=== PATIENT | male | born 1955 | race Caucasian/White ===

== ENCOUNTER 2016-08-07 03:22 | Emergency (ER) | payer OTHER ==
--- NOTE | 2016-08-07 03:53 | ERNOTE ---
Abdominal HPI - Narrative Date of Service: 08/07/16 - General Chief Complaint: Abdominal Pain Time Seen by Provider: 08/07/16 03:51 Source: patient, family - AND DAUGHTER. - Immun/Allergies/Home Medications Immunizatons: IMMUNIZATION HX Immunizations Up to Date No: Unk History of Influenza Vaccine Yes Hx Pneumococcal Vaccination No Allergies/Adverse Reactions: Allergies No Known Allergies Allergy (Unverified 08/07/16 03:25) Home Medications: HOME MEDICATIONS Cyanocobalamin (Vitamin B-12) [Vitamin B-12] 2,500 mcg SL DAILY 08/07/16 [Last Taken Unknown] Felodipine [Plendil] 5 mg PO DAILY 08/07/16 [Last Taken Unknown] Hydrocortisone Acetate [Anusol Hc Suppository] 25 mg RC BID #28 supp.rect [Last Taken Unknown] Lisinopril/Hydrochlorothiazide [Lisinopril-Hctz 20-25 mg Tab] 1 each PO DAILY [Last Taken Unknown] Metoprolol Succinate [Toprol Xl] 200 mg PO DAILY 08/07/16 [Last Taken Unknown] Tramadol HCl [Rybix Odt] 50 mg PO Q6H PRN #20 tab.rapdis 08/07/16 [Last Taken Unknown] Ubidecarenone [Co Q-10] 100 mg PO DAILY 08/07/16 [Last Taken Unknown] - History of Present Illness Narrative: PT C/O 3 MONTHS OF ABD PAIN THAT HE SAYS IS WORSE TONIGHT. HE IS NOT AWARE OF ANY FEVER. HE DENIES VOMITING . HE STATES HE HAS HAD DIARRHEA 10 15 X DAY FOR MONTHS WITH BRB. DENIES MEDS OTHER THAN MOM THAT HE TRIED TONIGHT WITH NO HELP. HE HAS BEEN TRYING TO LOSE WEIGHT AND HAS LOST 15 LBS SINCE "BEGINNING OF SUMMER" ( WHICH HE SAYS IS MAY). HE LIVES WITH [place]. NO ONE ELSE AT HOME IS SICK. HE SAYS HIS PAIN IS A GENERALIZED MID ABDOMINAL ACHING. NO NEW MEDS. HE SAW HIS PCP ABOUT 3-4 WEEKS AGO AND THEY DECIDED HE SHOULD STOP TAKING FISH OIL BUT THAT DID NOT HELP. HIS SUGGESTED HE GET A COLONOSCOPY AND HE REPORTS THAT IN THE PAST HE WAS TOLD HE HAD INTERNAL HEMORRHOIDS AND HE WONDERS IF THAT IS THE CAUSE OF HIS BLOOD IN HIS STOOLS. HE WAS SUPPOSED TO F/U WITH BLOOD WORK FOR HIS PCP BUT HE NEVER DID. Timing: constant, getting worse Review of Systems - Review of Systems Constitutional: Present: See HPI EYE: Present: no symptoms reported ENT: Present: no symptoms reported Respiratory: Present: no symptoms reported Cardiology: Present: no symptoms reported Gastrointestinal/Abdominal: Present: See HPI, diarrhea, abdominal pain, eating less Genitourinary: Present: no symptoms reported Musculoskeletal: Present: no symptoms reported Skin: Present: no symptoms reported Neurological: Present: no symptoms reported Endocrine: Present: no symptoms reported Hematologic/Lymphatic: Present: no symptoms reported Psych: Present: no symptoms reported All Other Systems: All systems neg except as marked - Patient's Past Medical History Patient History - Medical: No pertinent hx Patient History - Cardiac/Respiratory: Hypertension Patient History - Cancer: No Hx of Cancer Patient History - Surgical Procedures: Cataracts, Other, Orthopedic - LEFT KNEE SCOPE Patient History - Other: None - Social History Living Situations: home Psych History: No pertinent hx Smoking Status: Never smoker Have you smoked in the past 12 months: No Do you dip or chew tobacco: No Alcohol Use: heavy Drug Use: none - Immunizations Immunizations Up to Date: No - Unk Hx Pneumococcal Vaccination: No History of Influenza Vaccine: Yes Physical Exam - Physical Exam General Appearance: Present: wd/wn, alert, no apparent distress - VERY FLAT AFFECT, OVERLY TANNED, NO JAUNDICE, TEMP 38.5 NAD. Eye Exam: Normal inspection: bilateral Neck: Present: normal inspection Respiratory: Present: no respiratory distress, normal breath sounds, no accessory muscle use, chest nontender, lungs clear Cardiovascular/Chest: Present: regular rate, rhythm, no murmur, normal peripheral pulses Gastrointestinal/Abdominal: Present: tenderness - MILD UPPER ABD , POORLY LOCALIZED , TENDERNESS. ? ENLARGED LIVER LOBE IN EPIGASTRIC AREA. , abnormal bowel sounds - SL HYPERACTIVE B.S. , . Absent: guarding, rebound Rectal Exam: Present: nontender, normal rectal tone, normal prostate, black stool, blood-streaked stool - MINIMAL STOOL IN RECTUM = SOFT BROWN WITH SLIGHT RED STREAKING. NO MASSES PALPABLE. NO OBVIOUS ACTIVE EXTERNAL HEMORRHOIDS. HEME PENDING . Absent: mass Back Exam: Present: normal inspection, no CVA tenderness Neurological Exam: Present: alert, oriented. Absent: normal mood/affect - FLAT AFFECT. Skin Exam: Present: other - PT WITH EXCESSFULLY ORANGE LIKE TANNED SKIN. ED Progress - Results and Orders Patient's Lab Results:: I have reviewed the patient's lab results. Results and Orders: CBC = NL, CMP = MILD GLUC ELEVATION AND MINIMAL ELEVATION OF AST AND ALT. WITH NL BILI. CRP = 1.8 OR SL ELEVATED. URINE = NL WITH NEG ETOH. HEME STOOL = +. - Vital Signs Patient's Vital Signs:: I have reviewed the patient's vital signs. Vital Signs: Vital Signs 08/07/16 03:28 Temperature 38.5 C H Pulse Rate 99 Respiratory 18 Rate Blood Pressure 182/93 O2 Sat by Pulse 97 Oximetry - X-Ray X-Ray #1 X-Ray: abdomen Interpretation: Interp. by me - UNREMARKABLE. - CT/Ultrasound CT/Ultrasound Narrative: FOCAL BOWEL WALL THICKENING IN SIGMOID COLON - Progress/Reassessment Chief Complaint: Abdominal Pain Plan - Plan Plan: D/W DR PETER WITH WILL SEE HIM IN THE OFFICE TO ARRANGE FURTHER STUDY. Departure - Departure Clinical Impression: Chronic generalized abdominal pain Disposition: Home Follow Up Needed Condition: Good Instructions: Abdominal Pain, Adult, [id number], Bloody Diarrhea, Hemorrhoids , [id number] Additional Instructions: YOUR STUDIES WERE NEGATIVE EXCEPT THICKENING OF THE SIGMOID COLON AND FOR SOME BLOOD IN YOUR STOOL WHICH MAY BE FROM INTERNAL HEMORRHOIDS. CALL THE SURGEONS OFFIC E TO GET IN FOR FURTHER EVALUATION. Referrals: Kingston Peter MD [Associate] - Prescriptions: Hydrocortisone Acetate [Anusol Hc Suppository] 25 mg RC BID #28 supp.rect Tramadol HCl [Rybix Odt] 50 mg PO Q6H PRN #20 tab.rapdis PRN Reason: Pain
[2016-08-07 03:56] LABS: Mean Corpuscular Hemoglobin 30.1 pg (27-31); Mean Platelet Volume 9.8 fl (6.0-9.5); Neutrophil # 4.1 K/mm3 (1.3-6.0); Neutrophil % 67.1 % (42-75.0); Platelet Count 232 K/mm3 (150-450); Red Blood Count 4.65 M/mm3 (4.7-6.0); White Blood Count 6.1 K/mm3 (4.0-10.5)
[2016-08-07 04:09] LABS: Albumin * 3.7 gm/dl (3.4-5.0); Anion Gap 14.6 mmol/L (6.8-13.8); BUN/Creatinine Ratio 9.7 (9.0-21.6); CRP 1.8 mg/dL (0.0-0.9); Ca. Corrected For Albumin 8.6 mg/dL (8.4-10.2); Calcium * 8.7 mg/dL (7.9-10.9); Carbon Dioxide 24.9 mmol/L (24-32.6); Potassium 3.5 mmol/L (3.4-4.6); Total Protein 7.9 gm/dL (6.2-8.2)
[2016-08-07 04:20] LABS: Urine Bilirubin Negative (NEGATIVE); Urine Ketone 50 mg/dL (NEGATIVE); Urine Nitrite Negative (NEGATIVE); Urine Protein Negative (NEGATIVE); Urine Urobilinogen Normal (NORMAL); Urine pH 7.5 pH (5.0-7.0)
[2016-08-07 04:36] LABS: Urine Appearance Cloudy; Urine Bacteria TRACE; Urine Blood 5 /ul (NEGATIVE); Urine Color Yellow; Urine RBC None Seen /hpf (0-5); Urine WBC None Seen /hpf (0-5)
[2016-08-07 04:37] LABS: Urine Amorphous Sediment Many - 3+ (NONE-FEW)
[2016-08-07] MEDS ORDERED: KETOROLAC TROMETHAMINE 30 MG/ML VIAL IV ONE (05:09)
[2016-08-07] MEDS ORDERED: DIATRIZOATE MEGLU/DIATRIZO SOD 30 ML BTL ONE (05:11)
[2016-08-07] MEDS ORDERED: KETOROLAC TROMETHAMINE 30 MG/ML VIAL ONE (05:11)
[2016-08-07] MEDS ORDERED: DIATRIZOATE MEGLU/DIATRIZO SOD 30 ML BTL PO ONE (05:16)
--- OUTSIDE RECORDS SUMMARY | 2016-08-07 05:17 | XMS REPORT | Continuity of Care Document ---
:1955 Author Organization [facility] ([facility]) Address [address] [place] [address] Phone [phone] Care Team Providers Name Role Phone Laura Suazo Primary Care Provider [phone] Source Comments This disclosure is being made pursuant to the Care Everywhere program, applicable federal and state laws, and may not contain all informaitonavailable regarding this patient.[facility] ([facility]) Active Allergies and Adverse Reactions No Known Allergies Current Medications Prescription Sig. Disp. Refills Start Date End Date Status metoPROLol succinate 200 Take 200 mg by Active mg XL tablet mouth daily. felodipine 5 mg XR tablet Take 5 mg by mouth Active daily. lisinopril-hydrochlorothi Take 1 tablet by Active azide 20-25 mg per tablet mouth daily. multivitamin Take 1 capsule by Active (fat-soluble) (aquADEKs mouth 2 times SOFTGEL) capsule daily. Active Problems Problem Noted Date Status post cataract extraction and insertion of intraocular lens of right eye Status post cataract extraction and insertion of intraocular lens of left eye Resolved Problems Problem Noted Date Resolved Date Combined forms of age-related cataract of both eyes 05/02/2016 06/05/2016 Combined forms of age-related cataract of left eye 05/02/2016 05/21/2016 Combined forms of age-related cataract of right eye 05/02/2016 06/18/2016 Most Recent Encounters Date Type Specialty Providers Description 07/10/2016 Office Visit [facility] Ophthalmology Chief Comp: Patient Reported Reason For Visit 07/03/2016 Office Visit [facility] Ophthalmology [place], Dx: Status post MD Barrett cataract extraction and insertion of intraocular lens of left eye (Primary Dx) 06/25/2016 Office Visit [facility] Ophthalmology [place], Comp: Patient MD Barrett Reported Reason For Visit 06/18/2016 Office Visit [facility] Ophthalmology [place], Dx: Combined forms MD Barrett of age-related cataract of right eye (Primary Dx) 06/18/2016 Hospital Encounter [facility] General Internal [place], Dx: Combined forms Antonia Hyde MD of age-related cataract of right eye (Primary Dx) 06/18/2016 Anesthesia Event [facility] General Internal Jia Walden M, CUT TO LENGTH OPERATOR 06/18/2016 Surgery [facility] General Internal [place], RIGHT CATARACT Antonia Hyde MD EXTRACTION WITH INTRAOCULAR LENS IMPLANTATION 06/06/2016 Office Visit [facility] Ophthalmology [place], Chief Comp: Patient MD Barrett Reported Reason For Visit 06/05/2016 Office Visit [facility] Ophthalmology [place], Dx: Combined forms MD Barrett of age-related cataract of right eye (Primary Dx) 05/21/2016 Office Visit [facility] Ophthalmology [place] Dx: Combined forms MD Barrett of age-related cataract of left eye (Primary Dx) 05/21/2016 Hospital Encounter [facility] Internal [place] Dx: Combined forms Antonia Hyde MD of age-related cataract of left eye (Primary Dx) 05/21/2016 Anesthesia Event [facility] Internal Kenya Ramos Medicine CUT TO LENGTH OPERATOR 05/21/2016 Surgery [facility] [place], LEFT CATARACT Antonia Hyde MD EXTRACTION WITH INTRA OCCULAR LENS IMPLANTATION Social History Tobacco Use Types Packs/Day Years Used Date Former Smoker Smokeless Tobacco: Former User Alcohol Use Drinks/Week oz/Week Comments Yes 5 Cans of beer 3.0 Last Filed Vital Signs Vital Sign Reading Time Taken Blood Pressure 140/80 06/18/2016 11:59 AM CDT Pulse 54 06/18/2016 11:59 AM CDT Temperature 35.8 C (96.4 F) 06/18/2016 11:59 AM CDT Respiratory Rate 18 06/18/2016 11:59 AM CDT Height 1.854 m (6' 1") 06/18/2016 8:09 AM CDT Weight 90.719 kg (200 lb) 06/18/2016 8:09 AM CDT Body Mass Index 26.39 06/18/2016 8:09 AM CDT Oxygen Saturation 96% 06/18/2016 11:59 AM CDT Plan of Care Health Maintenance Due Date Last Done Comments HCV Screening 1955 Hepatitis B Vaccine (1 of 3 - Primary Series) 1955 Tdap Vaccine 11/12/1967 Lipid Disorder Screening 1974 MMR Vaccine 1974 Td Vaccine 1974 Colonoscopy 2006 Prostate Cancer Screening 2006 Influenza Vaccine: Seasonal (Season Ended) 2016 Procedures from Last 3 Months Procedure Name Priority Date/Time Associated Comments Diagnosis UICC OR CASE Routine 06/18/2016 1:41 Combined forms of Results for this PM CDT age-related procedure are in cataract of right the results eye section. RIGHT CATARACT 06/18/2016 9:45 Combined forms of EXTRACTION WITH AM CDT age-related INTRAOCULAR LENS cataract of right IMPLANTATION eye Case Notes BMI 26.39 UICC OR CASE Routine 05/21/2016 4:31 PM Combined forms of Results for this CDT age-related cataract procedure are in of left eye the results section. LEFT CATARACT 05/21/2016 11:15 AM Combined forms of EXTRACTION WITH INTRA CDT age-related cataract OCCULAR LENS of left eye IMPLANTATION Results from Last 3 Months [facility] OR CASE (06/18/2016 1:41 PM) Barrett Jones MD 06/18/20161:41 PM Procedure Note OR CASE: CATARACT Procedure Date: 06/18/2016 Pre-operative Diagnosis: Combined Cataract Age Related, right eye Post-operative Diagnosis: same Attending Staff: Barrett Win Phacoemulsification of cataract with posterior chamber intraocular lens, right eye Description of Operation/Procedure: The risks, benefits, indications, potential complications, and alternatives were explained to the patient and informed consent obtained. 0.5% Marcaine drops were instilled into the operative eye three times over a five minute period.The patient was brought to the operating room and placed in supine position.The eyelids and the patient's face were then prepped and draped in the usual fashion.A lid speculum was then placed in the operative eye.A 3 mm temporal clear corneal incision and a 1 mm side port incision were made to the right at the limbus through clear cornea.Healon was injected through the temporal incision, filling the anterior chamber.An approximately 5 mm circular anterior capsulotomy was performed using a bent cystitome. Hydrodissection and hydrodelineation of the nucleus were performed by injection of 1% Lidocaine under the anterior capsular leaflet. Phacoemulsification in the capsular bag was then accomplished using the "divide and conquer" technique. Using the irrigation/aspiration hand piece, the residual cortex was removed from the eye.Healon was injected into the posterior chamber, filling the capsular bag through the 3 mm temporal incision.A foldable acrylic lens was implanted in the capsular bag.At this point, the implant was noted to be central and well supported by an intact capsular bag.The irrigation/aspiration hand piece was then reintroduced behind the intraocular lens first, and then in the anterior chamber to aspirate all Healon from the eye.BSS solution was injected through the keratome incision to restore the eye to physiologic pressure.Stromal hydration of the cornea was performed.The incision was tested and found to be watertight.Vigamox 01cc was injected intracamerally.A drop of Vigamox was instilled topically in the eye.The lid speculum and drape were removed. Postoperative Condition: The patient tolerated the procedure well and left the operating room in satisfactory condition.There were no postanesthetic complications. Disposition: The patient was examined postoperatively in the clinic, discharged home and given a two week follow-up appointment. Barrett Win MD [facility] OR CASE (05/21/2016 4:31 PM) Barrett Jones MD 05/21/20164:31 PM Procedure Note OR CASE: CATARACT Procedure Date: 05/21/2016 Pre-operative Diagnosis: Combined Cataract Age Related, left eye Post-operative Diagnosis: same Attending Staff: Brarett Win Phacoemulsification of cataract with posterior chamber intraocular lens, left eye Description of Operation/Procedure: The risks, benefits, indications, potential complications, and alternatives were explained to the patient and informed consent obtained. 0.5% Marcaine drops were instilled into the operative eye three times over a five minute period.The patient was brought to the operating room and placed in supine position.The eyelids and the patient's face were then prepped and draped in the usual fashion.A lid speculum was then placed in the operative eye.A 3 mm temporal clear corneal incision and a 1 mm side port incision were made to the right at the limbus through clear cornea.Healon was injected through the temporal incision, filling the anterior chamber.An approximately 5 mm circular anterior capsulotomy was performed using a bent cystitome. Hydrodissection and hydrodelineation of the nucleus were performed by injection of 1% Lidocaine under the anterior capsular leaflet. Phacoemulsification in the capsular bag was then accomplished using the "divide and conquer" technique. Using the irrigation/aspiration hand piece, the residual cortex was removed from the eye.Healon was injected into the posterior chamber, filling the capsular bag through the 3 mm temporal incision.A foldable acrylic lens was implanted in the capsular bag.At this point, the implant was noted to be central and well supported by an intact capsular bag.The irrigation/aspiration hand piece was then reintroduced behind the intraocular lens first, and then in the anterior chamber to aspirate all Healon from the eye.BSS solution was injected through the keratome incision to restore the eye to physiologic pressure.Stromal hydration of the cornea was performed.The incision was tested and found to be watertight.Vigamox 01cc was injected intracamerally.A drop of Vigamox was instilled topically in the eye.The lid speculum and drape were removed. Postoperative Condition: The patient tolerated the procedure well and left the operating room in satisfactory condition.There were no postanesthetic complications. Disposition: The patient was examined postoperatively in the clinic, discharged home and given a two week follow-up appointment. Barrett Win MD
[2016-08-07 08:20] VITALS: BP 157/80
== END 2016-08-07 08:23 | disposition home or self-care (01) ==
LOC: ER 03:22
DX: R10.84 Generalized abdominal pain (principal); I10 Essential (primary) hypertension
CPT/HCPCS: 36415; 74020; 74178; 80053; 81001; 82150; 82272; 83690; 85025; 86140; 87045; 87046; 87177; 87209; 87493; 96374; 99285; G0481

== ENCOUNTER 2016-08-10 11:08 | Day surgery (SDC) | payer OTHER ==
[~2016-08-10 11:08] MED LIST: RINGERS SOLUTION,LACTATED 1,000 ML IV PRN
--- OUTSIDE RECORDS SUMMARY | 2016-08-10 11:12 | XMS REPORT | Continuity of Care Document ---
:1955 Author Organization [facility] ([facility]) Address [address] [place] [address] Phone [phone] Care Team Providers Name Role Phone Laura Suazo Primary Care Provider [phone] Source Comments This disclosure is being made pursuant to the Care Everywhere program, applicable federal and state laws, and may not contain all informaitonavailable regarding this patient.[facility] ([facility]) Active Allergies and Adverse Reactions [...] Type Specialty Providers Description 07/10/2016 Office Visit [facility] Ophthalmology Chief Comp: Patient Reported Reason For Visit 07/03/2016 Office Visit [facility] Ophthalmology [place], Dx: Status post MD Barrett cataract extraction and insertion of intraocular lens of left eye (Primary Dx) 06/25/2016 Office Visit [facility] Ophthalmology [place], Comp: Patient MD Barrett Reported Reason For Visit 06/18/2016 Office Visit [facility] Ophthalmology [place], Dx: Combined forms MD Barrett of age-related cataract of right eye (Primary Dx) 06/18/2016 Hospital Encounter [facility] General Internal [place], Dx: Combined forms Antonia Hyde MD of age-related cataract of right eye (Primary Dx) 06/18/2016 Anesthesia Event [facility] General Internal Jia Walden M, AUTOMOTIVE TECHNOLOGY INSTRUCTOR 06/18/2016 Surgery [facility] General Internal [place], RIGHT CATARACT Antonia Hyde MD EXTRACTION WITH INTRAOCULAR LENS IMPLANTATION 06/06/2016 Office Visit [facility] Ophthalmology [place], Chief Comp: Patient MD Barrett Reported Reason For Visit 06/05/2016 Office Visit [facility] Ophthalmology [place], Dx: Combined forms MD Barrett of age-related cataract of right eye (Primary Dx) 05/21/2016 Office Visit [facility] Ophthalmology [place] Dx: Combined forms MD Barrett of age-related cataract of left eye (Primary Dx) 05/21/2016 Hospital Encounter [facility] Internal [place] Dx: Combined forms Antonia Hyde MD of age-related cataract of left eye (Primary Dx) 05/21/2016 Anesthesia Event [facility] Internal Kenya Ramos Medicine AUTOMOTIVE TECHNOLOGY INSTRUCTOR 05/21/2016 Surgery [facility] [place], LEFT CATARACT Antonia Hyde MD EXTRACTION [...] eye IMPLANTATION Results from Last [address] [facility] OR CASE (06/18/2016 1:41 PM) Barrett [...] two week follow-up appointment. Barrett Win MD [facility] OR CASE (05/21/2016 4:31 PM) Barrett Jones MD 05/21/20164:31 PM Procedure Note OR CASE: CATARACT Procedure Date: 05/21/2016 Pre-operative Diagnosis: Combined Cataract Age Related, left eye Post-operative Diagnosis: same Attending Staff: Barrett [...]
[2016-08-10] MEDS ORDERED: RINGERS SOLUTION,LACTATED 1,000 ML IV ONE (11:31)
--- NOTE | 2016-08-10 14:48 | OR ---
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 Pedunculated polyp x 2 15 cm. Procedure: Colonoscopy to 25 cm. Biopsy tumor 25 cm. Snare polypectomy at 15 cm. Cold forcep biopsy polyp at 15 cm. Staff surgeon: Kingston Peter MD Anesthesia: MAC per HEALTH COORDINATOR EBL: Minimal Specimens: Cold forceps biopsy carcinoma at 25 cm. Snare polypectomy at 15 cm. Cold forcep biopsy polyp at 15 cm. Description: After informed consent and appropriate sedation the patient was placed in the left lateral decubitus position. Digital rectal exam was unremarkable. A flexible fiberoptic video colonoscope was introduced and bloody fluid was noted in the rectal vault. The scope was advanced under direct vision to 25 cm where a large near obstructing tumor was encountered and we were unable to navigate past this mass. Multiple cold forcep biopsies were taken. Upon withdrawal two pedunculated polyps were encountered at 15 cm. One polyp was excised with a hot snare and submitted as a separate specimen. The other adjacent polyp was large and we were unable to capture this with a snare, therefore cold forceps biopsy was performed with some difficulty as this polyp was on the opposite side of a valve. Hemostasis appeared adequate. The patient tolerated the procedure well without apparent complications and was discharged from the endoscopy suite in stable condition.
[2016-08-10 15:26] VITALS: BP 138/78
== END 2016-08-10 11:09 | disposition home or self-care (01) ==
LOC: AMB 11:08
PROVIDERS: ATTEND Specialist
PROC: 0DBE8ZX Excision of Large Intestine, Via Natural or Artificial Opening Endoscopic, Diagnostic (ICD-10-PCS; 2016-08-10)
PROC: 0DBE8ZX Excision of Large Intestine, Via Natural or Artificial Opening Endoscopic, Diagnostic (ICD-10-PCS; principal; 2016-08-10 12:05)
DX: Z12.11 Encounter for screening for malignant neoplasm of colon (principal); D01.2 Carcinoma in situ of rectum; K63.5 Polyp of colon; I10 Essential (primary) hypertension; Z87.891 Personal history of nicotine dependence; Z68.26 Body mass index [BMI] 26.0-26.9, adult

== ENCOUNTER 2019-02-11 19:09 | Observation (INO) ==
[2019-02-11 21:13] LABS: Venous Blood Gas HCO3 27.6 mmol/L (22.0-29.0); Venous Blood Gas pH 7.42 (7.32-7.43)
[2019-02-11 21:17] LABS: Hematocrit 45.1 % (42.0-52.0); Hemoglobin 15.8 gm/dL (13.5-18.0); Mean Cell Volume 90.9 fl (78-100); Mean Corpuscular Hemoglobin 31.9 pg (27-31); Mean Platelet Volume 10.5 fl (8-11.3); Neutrophil # 8.7 K/mm3 (1.3-6.0); Neutrophil % 79.8 % (42-75.0); Platelet Count 253 K/mm3 (150-450); Red Blood Count 4.96 M/mm3 (4.7-6.0); Red Cell Distribution Width 12.9 % (11.5-14.0); White Blood Count 10.9 K/mm3 (4.0-10.5)
[2019-02-11 21:26] LABS: Albumin * 4.2 gm/dl (3.4-5.0); Anion Gap 13.6 mmol/L (6.8-13.8); BUN/Creatinine Ratio 13.4 (9.0-21.6); Bilirubin, Total 0.6 mg/dL (0.0-1.1); Ca. Corrected For Albumin 8.5 mg/dL (8.4-10.2); Carbon Dioxide 31.1 mmol/L (24-32.6); Potassium 3.7 mmol/L (3.4-4.6); Total Protein 8.5 gm/dL (6.2-8.2)
--- NOTE | 2019-02-11 21:26 | ERNOTE ---
Syncope ER HPI Date of Service: 02/11/19 Stated Complaint: H2S Time Seen by Provider: 02/11/19 20:54 Source: patient, RN notes reviewed Exam Limitations: no limitations Immunizations: IMMUNIZATION HX Immunizations Up to Date Yes History of Influenza Vaccine Yes Hx Pneumococcal Vaccination No Allergies/Adverse Reactions: Allergies No Known Allergies Allergy (Verified 02/11/19 19:44) Home Medications: HOME MEDICATIONS Cyanocobalamin (Vitamin B-12) [Vitamin B-12] 2,500 mcg SL DAILY 08/07/16 [Last Taken 08/10/16 05:00] Cholecalciferol (Vitamin D3) [Vitamin D] 2,000 unit PO DAILY 08/09/16 [Last Taken 08/10/16 05:00] Multivitamins [Multivitamin Willian] 1 cap PO DAILY 08/09/16 [Last Taken 08/10/16 05:00] Saw Blanket 320 mg PO DAILY 08/09/16 [Last Taken 08/10/16 05:00] metoprolol succinate 200 mg tablet,extended release 24 hr 200 mg PO DAILY #90 tab 09/15/18 [Last Taken Unknown] felodipine 10 mg tablet,extended release 24 hr 10 mg PO DAILY #90 tab 10/29/18 [Last Taken Unknown] lisinopril 20 mg-hydrochlorothiazide 25 mg tablet 1 tab PO BID #180 tab 12/15/18 [Last Taken Unknown] - History of Present Illness Narrative: Finesse is a 63 year old male brought to the ED by private vehicle after being exposed to hydrogen sulfide at his work. This is a chemical that he routinely works with. He smelled the chemical coming into his mask and then became lightheaded. A coworker helped him sit down (he does not recall this) and he became unconscious briefly. He reported a headache on arrival but this has improved. He reports having mild nausea. Prior Episodes: Present: no prior history, single episode today Review of Systems - Review of Systems Constitutional: Present: malaise. Absent: recent illness, fever EYE: Absent: eye pain, eye discharge ENT: Absent: nose congestion, nasal drainage, sore throat Respiratory: Absent: shortness of breath, cough Cardiology: Absent: chest pain, palpitations Gastrointestinal/Abdominal: Present: nausea. Absent: vomiting, abdominal pain Genitourinary: Present: no symptoms reported Musculoskeletal: Absent: muscle pain, joint pain Skin: Absent: rash, lesions Neurological: Present: headache, dizziness/light-headedness Endocrine: Present: no symptoms reported Hematologic/Lymphatic: Absent: easy bruising, easy bleeding Psych: Present: no symptoms reported Medical History (Last Reviewed 02/11/19 @ 22:18 by Marycarmen Colorado NP) Primary osteoarthritis of left knee (Acute) Plantar fasciitis of right foot (Acute) COPD (chronic obstructive pulmonary disease) Onset Date: 09/15/18 Per documentation from [facility]. CT obtained on 09/15/2018. Colon cancer Onset Date: ~08/10/16 4.2 cm adenocarcinoma, moderately differentiated with invasion through the muscularis into the subserisak fat. 10 out 20 lymph nodes showed metastatic a denocarcinoma staged as T3 N2b. 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 Impression: Unchanged CT abdomen and pelvis with no evidence of recurrent or metastatic disease. History of CT scan of chest Onset Date: 09/15/18 [facility]. Impression: COPD and old granulomatous disease. No evidence of metastatic disease. Surgical History: Surgical History (Last Reviewed 02/11/19 @ 22:18 by Marycarmen Colorado NP) Cataract Onset Date: ~06/2016 Bilateral H/O removal of cyst on back History of arthroplasty of left knee Onset Date: ~04/28/03 [facility] partial medical meniscetomy History of colon surgery Onset Date: 08/20/16 Patient underwent a LAR. Hx of foot surgery right foot, bone removed H/O colonoscopy Onset Date: ~08/10/16 with biopsy, Brittani near obstructing ca @ 25cm, pedunculated polyps x2. Adenocarcinoma, tubulovillous adenoma. 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 [employer] Highest education level completed: high school graduate Service: No Tobacco: Smoking Status: Never smoker Alcohol: alcohol intake: current alcohol intake frequency: holiday/special occasion Substance Use: substance use type: does not use Dietary Habits: caffeine: Yes Type: carbonated beverages Physical Exam - Physical Exam General Appearance: Present: wd/wn, alert, no apparent distress, other - chemical odor present in exam room Head Exam: Present: normal inspection Eye Exam: Normal inspection: bilateral Ears, Nose, Throat: Present: normal ENT inspection, normal pharynx Neck: Present: normal inspection, nontender, supple Respiratory: Present: no respiratory distress, normal breath sounds, no accessory muscle use, lungs clear Cardiovascular/Chest: Present: regular rate, rhythm, no murmur, normal peripheral pulses Extremity Exam: Present: normal inspection, normal range of motion, no edema Neurological Exam: Present: alert, oriented, normal mood/affect, no motor/sensory deficits Skin Exam: Present: normal color, warm/dry Progress - Results and Orders Patient's Lab Results:: I have reviewed the patient's lab results. - Vital Signs Patient's Vital Signs:: I have reviewed the patient's vital signs. Vital Signs: Vital Signs 02/11/19 19:39 Temperature 36.3 C Pulse Rate 58 L Respiratory Rate 16 Blood Pressure 171/87 H O2 Sat by Pulse Oximetry 98 - EKG EKG #1 EKG: other - Sinus theresa EKG read: Reviewed by me - X-Ray X-Ray #1 X-Ray: chest Interpretation: Interp. by me X-ray Comments: No acute cardiopulmonary findings - Progress/Reassessment Chief Complaint: Syncopal Episode Progress:: Improved Plan - Plan Plan: Pulse oximetry has shown an oxygen saturation in the mid to upper 90's while the patient has been in the ED, however, his venous gases show a saturation of only 52%. He is feeling better since his arrival, but due to his low venous O2 sat and the possibility of latent effects from the chemical exposure, he will be admitted to observation status for oxygen supplementation and further monit oring. Departure Clinical Impression: Hydrogen sulfide poisoning Qualifiers: Encounter type: initial encounter Injury intent: accidental or unintentional Qualified Code(s): T59.6X1A - Toxic effect of hydrogen sulfide, accidental (unintentional), initial encounter - Departure Disposition: Still a patient Condition: Stable Referrals: Navid Perez DO [Primary Care Provider] -
[2019-02-12 09:22] LABS: Albumin * 3.7 gm/dl (3.4-5.0); Anion Gap 13.2 mmol/L (6.8-13.8); BUN/Creatinine Ratio 9.9 (9.0-21.6); Bilirubin, Total 0.8 mg/dL (0.0-1.1); Ca. Corrected For Albumin 8.5 mg/dL (8.4-10.2); Calcium * 8.6 mg/dL (7.9-10.9); Carbon Dioxide 27.4 mmol/L (24-32.6); Potassium 3.6 mmol/L (3.4-4.6); Total Protein 7.7 gm/dL (6.2-8.2)
[2019-02-12] MEDS ORDERED: HYDROCHLOROTHIAZIDE 25 MG TABLET PO SCH (09:45)
[2019-02-12] MEDS ORDERED: LISINOPRIL 20 MG TABLET PO SCH ×2 (09:45)
[2019-02-12] MEDS ORDERED: METOPROLOL SUCCINATE 100 MG TABLET.SA PO SCH (09:45)
[2019-02-12] MEDS ORDERED: FELODIPINE 5 MG TAB.SR.24H PO SCH (09:45)
[2019-02-12 11:06] VITALS: BP 150/73
--- NOTE | 2019-02-12 12:00 | HPDIS ---
Chief Complaint - Chief Complaint Date of Service: 02/12/19 Time of Service: 09:00 Chief Complaint: Syncope after hydrogen sulfur inhalation History of Present Illness: Sekou is a 63 yo male that was exposed to hydrogen sulfide gas at work. He wears a respirator and works with this gas daily but yesterday he was releasing a lid and the burst of gas shot up and dislodged his mask allowing vapor to be inhaled. He passed out initially but came back to and was brought to [facility] ER. He was lightheaded and dizzy. He had chest xray and bloodwork were all over good. However his oxygen saturation on blood gas was low. He was still havi ng some chest tightness. Medical History (Last Reviewed 02/11/19 @ 23:12 by Es Holguin RN) Primary osteoarthritis of left knee (Acute) Plantar fasciitis of right foot (Acute) COPD (chronic obstructive pulmonary disease) Onset Date: 09/15/18 Per documentation from [facility]. CT obtained on 09/15/2018. Colon cancer Onset Date: ~08/10/16 4.2 cm adenocarcinoma, moderately differentiated with invasion through the muscularis into the subserisak fat. 10 out 20 lymph nodes showed metastatic adenocarcinoma staged as T3 N2b. Hypertension Onset Date: ~2012 Metastatic cancer Onset Date: 08/20/16 rectosigmoid adenocarcinoma Abdominal pain Allergic rhinitis Back pain Onset Date: ~01/09/12 with right lef radiculopathy Degeneration of lumbar or lumbosacral intervertebral disc degenerative disc disease lumbar spine Foot contusion Onset Date: ~03/2016 left Plantar fasciitis of left foot Onset Date: ~[address] scan of abdomen Onset Date: 09/15/18 [facility]. Impression: Unchanged CT abdomen and pelvis with no evidence of recurrent or metastatic disease. History of CT scan of chest Onset Date: 09/15/18 [facility]. Impression: COPD and old granulomatous disease. No evidence of metastatic disease. Surgical History: Surgical History (Last Reviewed 02/11/19 @ 23:12 by Es Holguin RN) Cataract Onset Date: ~06/2016 Bilateral H/O removal of cyst on back History of arthroplasty of left knee Onset Date: ~04/28/03 [facility], partial medical meniscetomy History of colon surgery Onset Date: 08/20/16 Patient underwent a LAR. Hx of foot surgery right foot, bone removed H/O colonoscopy Onset Date: ~08/10/16 with biopsy, Brittani near obstructing ca @ 25cm, pedunculated polyps x2. Adenocarcinoma, tubulovillous adenoma. 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 Absent: Cough Cardiac: Present: Syncope. Absent: Chest Pain, Edema, Palpitations Abdominal: Present: Nausea. Absent: Vomiting Genitourinary: Present: No Symptoms Reported Musculoskeletal: Present: No Symptoms Reported Neurological: Present: No Symptoms Reported Skin: Present: No Symptoms Reported Immunizations: IMMUNIZATION HX Immunizations Up to Date Yes History of Influenza Vaccine Yes Hx Pneumococcal Vaccination No Allergies/Adverse Reactions: Allergies Allergy/AdvReac Type Severity Reaction Status Date / Time No Known Allergies Allergy Verified 02/11/19 19:44 Home Medications: HOME MEDICATIONS Cyanocobalamin (Vitamin B-12) [Vitamin B-12] 2,500 mcg SL DAILY 08/07/16 [Last Taken 02/11/19 05:00] Cholecalciferol (Vitamin D3) [Vitamin D3] 2,000 unit PO DAILY 08/09/16 [Last Taken 02/11/19 05:00] Multivitamins [Multivitamin Willian] 1 cap PO DAILY 08/09/16 [Last Taken 02/11/19 05:00] Saw [place] 320 mg PO DAILY 08/09/16 [Last Taken 02/11/19 05:00] metoprolol succinate 200 mg tablet,extended release 24 hr 200 mg PO DAILY #90 tab 09/15/18 [Last Taken 02/11/19 05:00] felodipine 10 mg tablet,extended release 24 hr 10 mg PO DAILY #90 tab 10/29/18 [Last Taken 02/11/19 05:00] lisinopril 20 mg-hydrochlorothiazide 25 mg tablet 1 tab PO BID #180 tab 12/15/18 [Last Taken 02/11/19 05:00] Exam - Exam Vital Signs: Vital Signs - Last Taken Temp 36.5 C 02/12/19 10:40 Pulse 69 02/12/19 10:40 Resp 18 02/12/19 10:40 BP 150/73 H 02/12/19 10:40 Pulse Ox 92 L 02/12/19 10:40 Constitutional: Present: Alert, Oriented x3, Cooperative ENT Exam: Present: hearing grossly normal Eye Exam: bilateral eye: normal inspection Respiratory: Present: lungs clear, normal breath sounds Cardiovascular/Chest: Present: regular rate, rhythm, no murmur Abdomen: Present: Normal bowel sounds, soft, nontender, nondistended Extremity: Present: normal capillary refill Skin Exam: Present: normal color, warm/dry, no cyanosis Diagnostic Studies: Abnormal Lab Results 02/11/19 02/11/19 02/11/19 Range/Units 21:05 21:05 21:05 WBC 10.9 H (4.0-10.5) K/mm3 MCH 31.9 H (27-31) pg Immature Gran # (Auto) 0.04 H (0.000-0.0310) K/mm3 Neutrophils % 79.8 H (42-75.0) % Lymphocytes % 10.2 L (20-51) % Neutrophils # 8.7 H (1.3-6.0) K/mm3 Lymphocytes # 1.11 L (1.5-3.5) k/mm3 pCO2 (35.0-48.0) mmHg pO2 (83.0-108.0) mmHg Total CO2 28.9 H (22.0-26.0) mmol/L Base Excess (-2.0-3.0) mmol/L ABG pH (7.35-7.45) VBG O2 Saturation 52.3 L (94.0-98.0) % Chloride 94 L (97-106) mmol/L Random Glucose (70-110) mg/dL Total Protein 8.5 H (6.2-8.2) gm/dL 02/12/19 02/12/19 Range/Units 09:07 09:35 WBC (4.0-10.5) K/mm3 MCH (27-31) pg Immature Gran # (Auto) (0.000-0.0310) K/mm3 Neutrophils % (42-75.0) % Lymphocytes % (20-51) % Neutrophils # (1.3-6.0) K/mm3 Lymphocytes # (1.5-3.5) k/mm3 pCO2 32.2 L (35.0-48.0) mmHg pO2 73.0 L (83.0-108.0) mmHg Total CO2 26.5 H (22.0-26.0) mmol/L Base Excess 3.2 H (-2.0-3.0) mmol/L ABG pH 7.52 H (7.35-7.45) VBG O2 Saturation (94.0-98.0) % Chloride (97-106) mmol/L Random Glucose 126 H (70-110) mg/dL Total Protein (6.2-8.2) gm/dL Laboratory Results WBC 10.9 K/mm3 (4.0-10.5) H 02/11/19 21:05 RBC 4.96 M/mm3 (4.7-6.0) 02/11/19 21:05 Hgb 15.8 gm/dL (13.5-18.0) 02/11/19 21:05 Hct 45.1 % (42.0-52.0) 02/11/19 21:05 MCV 90.9 fl (78-100) 02/11/19 21:05 MCH 31.9 pg (27-31) H 02/11/19 21:05 MCHC 35.0 g/dl (32-36) 02/11/19 21:05 RDW 12.9 % (11.5-14.0) 02/11/19 21:05 Plt Count 253 K/mm3 (150-450) 02/11/19 21:05 MPV 10.5 fl (8-11.3) 02/11/19 21:05 Immature Gran % (Auto) 0.40 % (0.001-0.429) 02/11/19 21:05 Immature Gran # (Auto) 0.04 K/mm3 (0.000-0.0310) H 02/11/19 21:05 Neutrophils % 79.8 % (42-75.0) H 02/11/19 21:05 Lymphocytes % 10.2 % (20-51) L 02/11/19 21:05 Monocytes % 8.9 % (0.0-9) 02/11/19 21:05 Eosinophils % 0.3 % (0.0-3.0) 02/11/19 21:05 Basophils % 0.4 % (0.0-1.0) 02/11/19 21:05 Nucleated RBC % 0.0 k/mm3 (0-1) 02/11/19 21:05 Neutrophils # 8.7 K/mm3 (1.3-6.0) H 02/11/19 21:05 Lymphocytes # 1.11 k/mm3 (1.5-3.5) L 02/11/19 21:05 Monocytes # 1.0 k/mm3 (0.0-1.0) 02/11/19 21:05 Eosinophils # 0.0 k/mm3 (0.0-0.7) 02/11/19 21:05 Absolute Basophils 0.0 k/mm3 (0.0-0.1) 02/11/19 21:05 pCO2 32.2 mmHg (35.0-48.0) L 02/12/19 09:35 pO2 73.0 mmHg (83.0-108.0) L 02/12/19 09:35 HCO3 25.5 mmol/L (21.0-28.0) 02/12/19 09:35 Total CO2 26.5 mmol/L (19.0-24.0) H 02/12/19 09:35 Base Excess 3.2 mmol/L (-2.0-3.0) H 02/12/19 09:35 ABG pH 7.52 (7.35-7.45) H 02/12/19 09:35 ABG O2 Sat (Measured) 96.1 % (94.0-98.0) 02/12/19 09:35 VBG O2 Saturation 52.3 % (94.0-98.0) L 02/11/19 21:05 Sodium 136 mmol/L (132-142) 02/12/19 09:07 Plasma Sodium 136 mmol/L (130-142) 02/12/19 09:07 Potassium 3.6 mmol/L (3.4-4.6) 02/12/19 09:07 Chloride 99 mmol/L (97-106) 02/12/19 09:07 Carbon Dioxide 27.4 mmol/L (24-32.6) 02/12/19 09:07 Anion Gap 13.2 mmol/L (6.8-13.8) 02/12/19 09:07 BUN 9 mg/dL (6-23) 02/12/19 09:07 Creatinine 0.91 mg/dL (0.4-1.4) 02/12/19 09:07 Est GFR (Non-Af Amer) 90 mL/min (60-130) 02/12/19 09:07 BUN/Creatinine Ratio 9.9 (9.0-21.6) 02/12/19 09:07 Random Glucose 126 mg/dL (70-110) H 02/12/19 09:07 Lactic Acid, Venous 0.9 mmol/L (0.4-2.0) 02/11/19 21:05 Calcium 8.6 mg/dL (7.9-10.9) 02/12/19 09:07 Calcium Adj for Albumin 8.5 mg/dL (8.4-10.2) 02/12/19 09:07 Total Bilirubin 0.8 mg/dL (0.0-1.1) 02/12/19 09:07 AST 21 U/L (0-48) 02/12/19 09:07 ALT 30 U/L (19-67) 02/12/19 09:07 Alkaline Phosphatase 63 U/L (50-170) 02/12/19 09:07 Total Protein 7.7 gm/dL (6.2-8.2) 02/12/19 09:07 Albumin 3.7 gm/dl (3.4-5.0) 02/12/19 09:07 Assessment/Plan - Assessment/Plan (1) Hydrogen sulfide poisoning Assessment: Sekou will be admitted to observation for hydrogen sulfide poisoning. He will be continued on oxygen overnight. He will have repeat blood gases and labs this morning and if ok will discharge to home. He currently reports being asymptomatic. Problem: Acute Qualifiers: Encounter type: initial encounter Injury intent: accidental or unintentional Qualified Code(s): T59.6X1A - Toxic effect of hydrogen sulfide, accidental (unintentional), initial encounter (1) Hydrogen sulfide poisoning Problem: Acute Qualifiers: Encounter type: initial encounter Injury intent: accidental or unintentional Qualified Code(s): T59.6X1A - Toxic effect of hydrogen sulfide, accidental (unintentional), initial encounter Date of Discharge:: 02/12/19 Description of Stay: Sekou was admitted for hydrogen sulfide poisoning. He was treated with oxygen and improved. Bloodwork was monitored and was acceptable at discharge. His vitals are normal and he is symptom free. He will be discharged to home with no restrictions. Procedures Performed: none Results and Findings: Lab Pending Results 02/11/19 21:05: WBC 10.9 H, RBC 4.96, Hgb 15.8, Hct 45.1, MCV 90.9, MCH 31.9 H, MCHC 35.0, RDW 12.9, Plt Count 253, MPV 10.5, Immature Gran % (Auto) 0.40, Immature Gran # (Auto) 0.04 H, Neutrophils % 79.8 H, Lymphocytes % 10.2 L, Monocytes % 8.9, Eosinophils % 0.3, Basophils % 0.4, Nucleated RBC % 0.0, Neutrophils # 8.7 H, Lymphocytes # 1.11 L, Monocytes # 1.0, Eosinophils # 0.0, Absolute Basophils 0.0 02/11/19 21:05: Sodium 135, Plasma Sodium 135, Potassium 3.7, Chloride 94 L, Carbon Dioxide 31.1, Anion Gap 13.6, BUN 11, Creatinine 0.82, Est GFR (Non-Af Amer) 101, BUN/Creatinine Ratio 13.4, Random Glucose 109, Calcium 9.0, Calcium Adj for Albumin 8.5, Total Bilirubin 0.6, AST 21, ALT 25, Alkaline Phosphatase 72, Total Protein 8.5 H, Albumin 4.2 02/11/19 21:05: pCO2 43.2, pO2 27.4, HCO3 27.6, Total CO2 28.9 H, Base Excess 2.7, ABG pH 7.42, VBG O2 Saturation 52.3 L 02/11/19 21:05: Lactic Acid, Venous 0.9 02/12/19 09:07: Sodium 136, Plasma Sodium 136, Potassium 3.6, Chloride 99, Carbon Dioxide 27.4, Anion Gap 13.2, BUN 9, Creatinine 0.91, Est GFR (Non-Af Amer) 90, BUN/Creatinine Ratio 9.9, Random Glucose 126 H, Calcium 8.6, Calcium Adj for Albumin 8.5, Total Bilirubin 0.8, AST 21, ALT 30, Alkaline Phosphatase 63, Total Protein 7.7, Albumin 3.7 02/12/19 09:35: pCO2 32.2 L, pO2 73.0 L, HCO3 25.5, Total CO2 26.5 H, Base Ex cess 3.2 H, ABG pH 7.52 H, ABG O2 Sat (Measured) 96.1 Discharge Location: Home Disposition: Home self-care Condition: Good Discharge Activity: Activity as tolerated Discharge Diet: General/regular food Referrals: Navid Perez DO [Primary Care Provider] - (as needed. Appointment not needed unless patient requests.) Problem Oriented Discharge Instructions to Patient/Family: Poisoning Information, Adult Complete Home Medications List: Complete Home Medication List: Cyanocobalamin (Vitamin B-12) [Vitamin B-12] 2,500 mcg SL DAILY 08/07/16 Cholecalciferol (Vitamin D3) [Vitamin D3] 2,000 unit PO DAILY 08/09/16 Multivitamins [Multivitamin Willian] 1 cap PO DAILY 08/09/16 Saw [place] 320 mg PO DAILY 08/09/16 metoprolol succinate 200 mg tablet,extended release 24 hr 200 mg PO DAILY #90 ta b 09/15/18 felodipine 10 mg tablet,extended release 24 hr 10 mg PO DAILY #90 tab 10/29/18 lisinopril 20 mg-hydrochlorothiazide 25 mg tablet 1 tab PO BID #180 tab 12/15/18
== END 2019-02-12 12:05 | disposition home or self-care (01) ==
LOC: MS 19:09 → ER 19:09 → MS 22:48
PROVIDERS: ADMIT Internal Medicine; ATTEND Family Medicine
DX: T59.6X1A Toxic effect of hydrogen sulfide, accidental (unintentional), initial encounter
CPT/HCPCS: 36415; 36416; 36600; 71020; 71046; 80053; 82803; 83605; 85025; 93005; 99285; G0378